=== PATIENT | male | born 1995 | race Caucasian/White ===

== ENCOUNTER 2016-08-06 20:26 | Emergency (ER) | payer BC, OTHER ==
[~2016-08-06] VITALS: Ht 172.7 cm; Wt 59.0 kg
[2016-08-06 20:29] VITALS: TEMP 36.8; Ht 172.7 cm; Wt 59.0 kg
[2016-08-06] MEDS ORDERED: PROMETHAZINE HCL INJ 6.25 MG in SODIUM CHLORIDE 0.9% 50ML 50 ML IV STA (20:34)
[2016-08-06] MEDS ORDERED: ONDANSETRON INJ 2 MG/ML 2 ML VIAL IV STA (20:34)
[2016-08-06] MEDS ORDERED: SODIUM CHLORIDE 0.9% 1000ML 2,000 ML IV STA (20:34)
--- NOTE | 2016-08-06 20:45 | EMERGENCY ROOM VISIT NOTE ---
History Report prepared by Omid: Bon Adan Under the Supervision of: Dr. Geovanny Hirsch M.D. First contact with patient: 20:31 Chief Complaint: DEHYDRATION Stated Complaint: DEHYDRATED Nursing Triage Summary: Pt c/o dehydration, vomiting all day "I can't keep anything down". Reports was out drinking last night. History of Present Illness The patient is a 21 year old male who presents to the Emergency Room with complaints of persistent dehydration throughout the day. Today is the patient's 21st birthday and he was out drinking after midnight. The patient has been unable to keep anything down today secondary to vomiting. The patient never drank as much as he did last night. He fell but did not hit his head or sustain any injuries. He denies headache or diarrhea. The patient only urinated once today. He notes that he voided a small amount of urine at that time. The patient felt fine prior to consuming alcohol last night. He denies any health problems. He has no known drug allergies. Source of History: patient Onset: today Position: other (global) Quality: other (dehdration) Timing: other (persistent) Associated Symptoms: + vomiting, No headache, No diarrhea Review of Systems See HPI for pertinent positives & negatives. A total of 10 systems reviewed and were otherwise negative. Past Medical & Surgical Medical Problems: (1) No Known Active Medical Problems Family History Cancer Diabetes mellitus Gallbladder disease Heart disease Hypertension Kidney disease Kidney stones Social History Smoking Status: Never Smoker Alcohol Use: none Marital Status: single Housing Status: lives with family Occupation Status: employed Current/Historical Medications Scheduled PRN Diphenhydramine Hcl (Sleep) ([employer] Sleepgels), 1 CAP PO HS PRN for Sleep Allergies Coded Allergies: No Known Allergies (Unverified Allergy, NONE, 07/07/08) Physical Exam Vital Signs Date Time Temp Pulse Resp B/P (MAP) Pulse Ox O2 Delivery O2 Flow Rate FiO2 08/06/16 22:49 58 17 132/75 99 Room Air 08/06/16 22:23 61 16 136/79 100 Room Air 08/06/16 20:29 36.8 90 18 143/96 98 Room Air Physical Exam GENERAL: Patient is in no acute distress. HEENT: No acute trauma, normocephalic atraumatic, mucous membranes are dry, no nasal congestion, no scleral icterus. NECK: No stridor, no adenopathy, no meningismus, trachea is midline. LUNGS: Clear to auscultation bilaterally, no wheeze, no rhonchi, breath sounds equal. HEART: Without murmurs gallops or rubs, regular rate and rhythm. ABDOMEN: Soft, nontender, bowel sounds positive, no hernias, no peritonitis. EXTREMITIES: No cyanosis or edema, full range of motion of all the joints without pain or difficulty, no signs for acute trauma. NEUROLOGIC: Oriented x 3, no acute motor or sensory deficits, no focal weakness. SKIN: No rash, no jaundice, no diaphoresis. Medical Decision & Procedures Laboratory Results 08/06/16 20:45 Red Blood Count 5.54, Mean Corpuscular Volume 89.2, Mean Corpuscular Hemoglobin 30.7, Mean Corpuscular Hemoglobin Concent 34.4, Mean Platelet Volume 9.2, Neutrophils (%) (Auto) 80.4, Lymphocytes (%) (Auto) 14.3, Monocytes (%) (Auto) 4.9, Eosinophils (%) (Auto) 0.0, Basophils (%) (Auto) 0.1, Neutrophils # (Auto) 10.41, Lymphocytes # (Auto) 1.85, Monocytes # (Auto) 0.64, Eosinophils # (Auto) 0.00, Basophils # (Auto) 0.01 08/06/16 20:45 Test 08/06/16 20:45 White Blood Count 12.95 K/uL (4.8-10.8) Red Blood Count 5.54 M/uL (4.7-6.1) Hemoglobin 17.0 g/dL (14.0-18.0) Hematocrit 49.4 % (42-52) Mean Corpuscular Volume 89.2 fL (80-100) Mean Corpuscular Hemoglobin 30.7 pg (25-34) Mean Corpuscular Hemoglobin Concent 34.4 g/dl (32-36) Platelet Count 390 K/uL (130-400) Mean Platelet Volume 9.2 fL (7.4-10.4) Neutrophils (%) (Auto) 80.4 % Lymphocytes (%) (Auto) 14.3 % Monocytes (%) (Auto) 4.9 % Eosinophils (%) (Auto) 0.0 % Basophils (%) (Auto) 0.1 % Neutrophils # (Auto) 10.41 K/uL (1.4-6.5) Lymphocytes # (Auto) 1.85 K/uL (1.2-3.4) Monocytes # (Auto) 0.64 K/uL (0.11-0.59) Eosinophils # (Auto) 0.00 K/uL (0-0.5) Basophils # (Auto) 0.01 K/uL (0-0.2) RDW Standard Deviation 40.4 fL (36.4-46.3) RDW Coefficient of Variation 12.6 % (11.5-14.5) Immature Granulocyte % (Auto) 0.3 % Immature Granulocyte # (Auto) 0.04 K/uL (0.00-0.02) Anion Gap 10.0 mmol/L (3-11) Est Creatinine Clear Calc Drug Dose 88.6 ml/min Estimated GFR () 110.6 Estimated GFR (Non- 95.5 BUN/Creatinine Ratio 10.2 (10-20) Calcium Level 9.4 mg/dl (8.5-10.1) Total Bilirubin 0.4 mg/dl (0.2-1) Aspartate Amino Transf (AST/SGOT) 19 U/L (15-37) Alanine Aminotransferase (ALT/SGPT) 28 U/L (12-78) Alkaline Phosphatase 89 U/L (45-117) Total Creatine Kinase 144 U/L (39-308) Total Protein 8.6 gm/dl (6.4-8.2) Albumin 4.6 gm/dl (3.4-5.0) Globulin 4.0 gm/dl (2.5-4.0) Albumin/Globulin Ratio 1.2 (0.9-2) Laboratory results reviewed by me. Medications Administered Medications (Trade) Dose Ordered Sig/Fiona Route Start Time Stop Time Status Last Admin Dose Admin Sodium Chloride 2,000 ml @ 999 mls/hr Q2H1M STAT IV 08/06/16 20:34 08/06/16 22:34 DC 08/06/16 20:34 999 MLS/HR Ondansetron HCl (Zofran Inj) 4 mg NOW STAT IV 08/06/16 20:34 08/06/16 20:36 DC 08/06/16 20:46 4 MG Promethazine HCl 6.25 mg/Sodium Chloride 50.25 ml @ 204 mls/hr NOW STAT IV 08/06/16 20:34 08/06/16 20:48 DC 08/06/16 20:49 204 MLS/HR Ondansetron HCl (ZOFRAN ODT 4MG Home Pack) 1 homepack UD ONCE PO 08/06/16 23:00 08/06/16 23:01 DC 08/06/16 23:03 1 HOMEPACK ED Course 2030: The patient was evaluated in room C6. A complete history and physical exam was performed. 2033: Promethazine HCl 6.25 mg / NSS 50.25 ml @ 204 mls/hr, Zofran 4 mg IV, NSS 2000 ml @ 999 mls/hr. 2216: The patient is doing well. He received 2L of fluids. 2244: Reassessed the patient. He was able to drink a bottle of Poweraid. The patient will be discharged. 2299: Zofran Odt 4 mg PO homepack. Medical Decision Differential diagnosis includes dehydration, renal failure, electrolyte imbalance, head trauma, alcohol abuse, alcohol induced vomiting, viral illness. Blood pressure screening: Patient was found to have a slightly elevated blood pressure due to circumstances. I do not believe that the patient requires hypertension monitoring. Medication Reconciliation: I attest that I have personally reviewed the patient' s current medication list. There is a mild leukocytosis, this is likely consistent with all his vomiting. No concerning anemia. No significant electrolyte abnormality, kidney failure or hepatitis. On exam, the patient was not toxic or febrile. There was no peritonitis. He has a nonfocal and normal neurologic evaluation. The patient presents after a heavy evening of alcohol use. He has been vomiting all day. He did seem dehydrated. He was given IV saline, IV Zofran and IV Phenergan, he feels markedly improved. He is now tolerating oral intake. He is being discharged home. Impression Primary Impression: Dehydration Additional Impressions: Vomiting Alcohol use Scribe Attestation The scribe's documentation has been prepared under my direction and personally reviewed by me in its entirety. I confirm that the note above accurately reflects all work, treatment, procedures, and medical decision making performed by me. Departure Information Dispostion Home / Self-Care Referrals No Doctor, Assigned (PCP) Forms HOME CARE DOCUMENTATION FORM, IMPORTANT VISIT INFORMATION, WORK / SCHOOL INSTRUCTIONS Patient Instructions My [facility] Health Problem Qualifiers Additional Impressions:
[2016-08-06] MEDS ORDERED: DIPH50CA56 PO (20:56)
[2016-08-06 20:57] LABS: BASO % 0.1 %; BASO ABS # 0.01 K/uL (0-0.2); COMPLETE YES; HEMATOCRIT 49.4 % (42-52); IG% 0.3 %; LYMPH % 14.3 %; LYMPH ABS # 1.85 K/uL (1.2-3.4); MEAN CELL VOLUME 89.2 fL (80-100); MEAN CORPUSCULAR HEMOGLOBIN 30.7 pg (25-34); MEAN CORPUSCULAR HGB CONC 34.4 g/dl (32-36); MEAN PLATELET VOLUME 9.2 fL (7.4-10.4); MONO % 4.9 %; NEUT % 80.4 %; PLATELET COUNT 390 K/uL (130-400); RED BLOOD COUNT 5.54 M/uL (4.7-6.1); WHITE BLOOD COUNT 12.95 K/uL (4.8-10.8)
[2016-08-06 21:13] LABS: BUN/CREATININE RATIO 10.2 (10-20); CREATININE 1.1 mg/dl (0.60-1.40); POTASSIUM 4.4 mmol/L (3.5-5.1)
[2016-08-06 21:16] LABS: ALB/GLOB RATIO 1.2 (0.9-2)
[2016-08-06 21:54] LABS: CALCIUM 9.4 mg/dl (8.5-10.1)
[2016-08-06 22:49] VITALS: BP 132/75; PULSE 58; O2SAT 99
[2016-08-06] MEDS ORDERED: ONDANSETRON HOME PACK 4MG OD TAB PO ONE (23:00)
== END 2016-08-06 23:07 | disposition home or self-care (01) ==
LOC: C.EDB 20:27 → C.EDC 23:07
DX: E86.0 Dehydration (principal); R11.10 Vomiting, unspecified; F10.10 Alcohol abuse, uncomplicated

== ENCOUNTER → 2016-09-26 | Outpatient (CLI) | payer BC ==
[~2016-09-26] MED LIST: DIPH50CA56 PO
[2016-09-26 17:54] LABS: URINE PROTIEN/CREAT RATIO 0.1 (0-0.2); URINE TOTAL PROTEIN 12.8 mg/dl (0-11.9)
[2016-09-26 17:56] LABS: BLOOD UREA NITROGEN 15 mg/dl (7-18); BUN/CREATININE RATIO 13.7 (10-20); CALCIUM 9.3 mg/dl (8.5-10.1); CARBON DIOXIDE 29 mmol/L (21-32); CHLORIDE 103 mmol/L (98-107); GLUCOSE 77 mg/dl (70-99); PHOSPHORUS 3.5 mg/dl (2.5-4.9); POTASSIUM 3.9 mmol/L (3.5-5.1); SODIUM 139 mmol/L (136-145)
[2016-09-26 18:07] LABS: URINE APPEARANCE CLEAR (CLEAR); URINE BILIRUBIN NEG (NEG); URINE COLOR YELLOW; URINE EPITHELIAL CELL AUTO 0-5 /lpf (0-5); URINE NITRITE NEG (NEG); URINE SPECIFIC GRAVITY 1.023 (1.000-1.030); UROBILINOGEN NEG (NEG); ZZUR CULT IF INDIC CLEAN CATCH NO
[2016-09-26 18:12] LABS: MANUAL MICROSCOPIC REQUIRED? NO; REVIEW REQ? NO
== END | disposition home or self-care (01) ==
LOC: C.LAB1850 16:58
PROVIDERS: ATTEND Internal Medicine Nephrology
DX: R31.29 Other microscopic hematuria (principal)